=== PATIENT | male | born 1975 | race Caucasian/White ===

== ENCOUNTER 2018-11-29 18:35 | Emergency (ER) | payer SELFPAY ==
[2018-11-29] MEDS ORDERED: NALOXONE HCL 0.4 MG/ML INJ IVP ONE (18:37)
--- NOTE | 2018-11-29 18:39 | EDPHY ---
H & P Time Seen by Provider: 11/29/18 18:37 HPI/ROS: CHIEF COMPLAINT: However overdose HISTORY OF PRESENT ILLNESS: Patient is a 43-year-old man who was found sleeping in the lobby of a hotel. He admitted to paramedics that he had used heroin and probably more than usual. He is difficult to arouse but has had stable vital signs. He denies pain or injury. No seizure-like activity. No trauma. Severity: Moderate Modifying factors: None REVIEW OF SYSTEMS: Unable to obtain secondary to condition Physical Exam General Appearance: WD/WN, no apparent distress, obtunded (But arousable with painful stimulation) EENT: PERRL/EOMI, normal ENT inspection, TMs normal, pharynx normal Neck: non-tender, full range of motion, supple, normal inspection Respiratory: chest non-tender, lungs clear, normal breath sounds Cardiac/Chest: normal peripheral pulses, regular rate, rhythm, P Peripheral Pulses: 2+: carotid (R), carotid (L), femoral (R), femoral (L), dorsalis-pedis (R), dorsalis-pedis (L) Abdomen: normal bowel sounds, non-tender, soft Extremities: normal range of motion, non-tender, normal inspection, normal capillary refill Neurological: calm, ldr nurse II-XII NML as tested. No: alert (Somnolent) Appearance: appropriate appearance, appropriate insight, neat, denies illness Behavior/Eye Contact/Speech: cooperative, decreased rate of speech Thoughts/Hallucinations: normal thought pattern, no apparent hallucination Skin: normal color, warm/dry Source: Patient, EMS Exam Limitations: Intoxication - Medical/Surgical History Hx Asthma: No Hx Chronic Respiratory Disease: No Hx Diabetes: No Hx Cardiac Disease: No Hx Renal Disease: No Hx Cirrhosis: No Hx Alcoholism: No - Family History Significant Family History: No pertinent family hx - Social History Drug Use: Heroin Constitutional: Initial Vital Signs Temperature (C) 36.9 C 11/29/18 18:41 Heart Rate 104 H 11/29/18 18:41 Respiratory Rate 16 11/29/18 18:41 Blood Pressure 148/87 H 11/29/18 18:41 O2 Sat (%) 97 11/29/18 18:41 O2 Delivery Mode Room Air Allergies/Adverse Reactions: No Known Allergies Allergy (Unverified 11/29/18 18:41) Medical Decision Making ED Course/Re-evaluation: 7:00 p.m. The patient had a slight response to small dose of Narcan. He is sleeping but arousable. He is saturating 96% on room air. Will observe. 8:33 p.m. the patient is ambulating without difficulty to the bathroom. Will discharge at this time to [facility]. Differential Diagnosis: Partial list of the Differential diagnosis considered include but were not limited to; opiate abuse, polysubstance abuse, intoxication and although unlikely based on the history and physical exam, I also considered head injury, infection. - Data Points Medications Given: Discontinued Medications Naloxone HCl (Narcan) 0.4 mg IVP EDNOW ONE Stop: 11/29/18 18:38 Last Admin: 11/29/18 18:40 Dose: 0.4 mg Departure - Departure Disposition: Home, Routine, Self-Care Clinical Impression: Opiate abuse, continuous Condition: Fair Instructions: Opioid Use Disorder (ED) Additional Instructions: [facility] directly [facility]. Referrals: NONE *PRIMARY CARE P,. [Primary Care Provider] - As per Instructions
[2018-11-29 20:49] VITALS: BP 164/97
== END 2018-11-29 20:58 | disposition home or self-care (01) ==
DX: F11.10 Opioid abuse, uncomplicated (principal)
CPT/HCPCS: 96374